=== PATIENT | female | born 1950 | race Caucasian/White ===

== ENCOUNTER 2023-10-23 01:47 | Inpatient (IN) | payer MEDICARE, OTHER ==
[~2023-10-23] VITALS: Ht 157.5 cm; Wt 105.6 kg
[2023-10-23] MEDS ORDERED: ONDANSETRON HCL 4 MG/2 ML VIAL IV ONE (02:00)
[2023-10-23] MEDS ORDERED: MORPHINE SULFATE 4 MG/ML SYR/VIAL IV ONE (02:00)
[2023-10-23 02:30] LABS: Alanine Aminotransferase 23 U/L (7-40); Alkaline Phosphatase 123 U/L (46-116); Anion Gap 6 (5-15); Aspartate Aminotransferase 18 U/L (13-40); BUN/Creatinine Ratio 8.5 (10.0-20.0); Bilirubin, Total 0.4 mg/dL (0.2-1.0); Blood Urea Nitrogen 9 mg/dL (9-23); Calcium 8.4 mg/dL (8.7-10.4); Carbon Dioxide 26 mmol/L (20-30); Chloride 102 mmol/L (98-107); Glucose 243 mg/dL (74-106); Potassium 3.2 mmol/L (3.5-5.1); Sodium 134 mmol/L (136-145); Total Protein 6.7 g/dL (5.7-8.2)
[2023-10-23 02:46] LABS: Basophils # (auto) 0.1 10 ^3/uL (0-0.2); Basophils % (auto) 0.8 % (0.0-2.0); Eosinophils # (auto) 0.4 10 ^3/uL (0-0.8); Hematocrit 41.2 % (36.0-46.0); Hemoglobin 13.9 g/dL (12.2-16.2); Lymphocytes # (auto) 2.6 10 ^3/uL (0.4-5.4); Lymphocytes % (auto) 28.9 % (10.0-50.0); Mean Corpuscular Hemoglobin 30.5 pg (28.0-32.0); Mean Corpuscular Hgb Conc. 33.6 g/dL (32.0-36.0); Mean Corpuscular Volume 90.5 fL (80.0-100.0); Monocytes # (auto) 1.3 10 ^3/uL (0-1.3); Neutrophils # (auto) 4.7 10 ^3/uL (1.6-8.6); Neutrophils % (auto) 52.3 % (37.0-80.0); Red Blood Cells 4.55 10^6/uL (4.0-5.20); Red Cell Distribution Width 13.4 % (11.8-14.3); White Blood Cell 9.1 10^3/uL (4.4-10.8)
[2023-10-23 03:47] VITALS: PULSE 77; RESP 20; O2SAT 94
[2023-10-23] MEDS ORDERED: POTASSIUM CHL 20MEQ/100ML 100 ML IV ONE (04:45)
[2023-10-23] MEDS ORDERED: DEXTROSE (50%) 50ML SYRG IV PRN (07:15)
[2023-10-23] MEDS ORDERED: ALBUTEROL SULF 2.5 MG/0.5ML(0.5%) NEB SOLN NEB PRN (07:15)
[2023-10-23] MEDS ORDERED: ACETAMINOPHEN 325 MG TAB PO PRN (07:15)
[2023-10-23] MEDS ORDERED: MORPHINE SULFATE INJ 2 MG/ml SYRG IV PRN (07:15)
[2023-10-23] MEDS ORDERED: NITROGLYCERIN 0.4 MG SL TAB SL PRN (07:15)
[2023-10-23 07:53] VITALS: PULSE 95; RESP 18; O2SAT 96
[2023-10-23 08:08] LABS: INR 0.98 (0.9-1.15); Partial Thromboplastin Time 23.9 SEC (24.5-34.5); Prothrombin Time 10.3 sec (9.3-11.8)
[2023-10-23 08:15] VITALS: BP 133/73; PULSE 90; RESP 20; TEMP 98.4; O2SAT 95
[2023-10-23 10:08] LABS: COVID19 ANTIGEN SOFIA FIA NEGATIVE (NEGATIVE)
[2023-10-23] MEDS: METOPROLOL SUCCINATE XL 50 MG TAB PO SCH (10:37)
[2023-10-23] MEDS: amLODIPine BESYLATE 5 MG TAB PO SCH (10:38)
[2023-10-23] MEDS: LISINOPRIL 20 MG TAB PO SCH (10:38)
[2023-10-23] MEDS: ONDANSETRON HCL 4 MG/2 ML VIAL IV PRN ×2 (10:39→15:39)
[2023-10-23] MEDS: MORPHINE SULFATE INJ 2 MG/ml SYRG IV PRN ×2 (10:39→19:38)
[2023-10-23] MEDS: FUROSEMIDE 20 MG TAB PO SCH (10:39)
[2023-10-23] MEDS: InsuLIN REG 1unit/0.01ml Soln (100units/ml) SC SCH ×3 (15:40→21:56)
[2023-10-23] MEDS: ACCU-CHEK COMFORT CURVE STRIP VI SCH ×3 (15:40→21:50)
[2023-10-23 19:09] VITALS: BP 138/78; PULSE 2; PULSE 82; RESP 18; TEMP 97.7; O2SAT 94
[2023-10-23 20:00] VITALS: BP 138/78; PULSE 82; PULSE 87; RESP 18; TEMP 97.7; O2SAT 94
[2023-10-23] MEDS ORDERED: CYCLOBENZAPRINE HCL 10 MG TAB ONE (21:38)
[2023-10-23] MEDS ORDERED: GABAPENTIN 300 MG CAP ONE (21:38)
[2023-10-23] MEDS: CYCLOBENZAPRINE HCL 10 MG TAB PO PRN (21:50)
[2023-10-23] MEDS: GABAPENTIN 300 MG CAP PO SCH (21:50)
[2023-10-23 22:00] VITALS: BP 132/64; PULSE 90; RESP 19; TEMP 99.1; O2SAT 94
[2023-10-24] VITALS (10 sets, daily range): BP systolic 106–148; BP diastolic 49–92; PULSE 55–103; RESP 16–20; TEMP 98.8–100.8; O2SAT 91–98
[2023-10-24] MEDS: GABAPENTIN 300 MG CAP PO SCH ×3 (05:28→21:36)
[2023-10-24] MEDS: CYCLOBENZAPRINE HCL 10 MG TAB PO PRN (05:28)
[2023-10-24] MEDS: MORPHINE SULFATE INJ 2 MG/ml SYRG IV PRN ×3 (05:34→16:38)
[2023-10-24] MEDS: ACCU-CHEK COMFORT CURVE STRIP VI SCH ×4 (05:34→23:27)
[2023-10-24] MEDS: InsuLIN REG 1unit/0.01ml Soln (100units/ml) SC SCH ×4 (05:55→23:29)
[2023-10-24 06:13] LABS: Basophils # (auto) 0 10 ^3/uL (0-0.2); Basophils % (auto) 0.4 % (0.0-2.0); Eosinophils # (auto) 0.1 10 ^3/uL (0-0.8); Eosinophils % (auto) 1.1 % (0.0-7.0); Hematocrit 39.4 % (36.0-46.0); Hemoglobin 13.3 g/dL (12.2-16.2); Lymphocytes # (auto) 2.1 10 ^3/uL (0.4-5.4); Lymphocytes % (auto) 23.4 % (10.0-50.0); Mean Corpuscular Hemoglobin 30.7 pg (28.0-32.0); Mean Corpuscular Hgb Conc. 33.8 g/dL (32.0-36.0); Mean Corpuscular Volume 90.7 fL (80.0-100.0); Monocytes # (auto) 1.5 10 ^3/uL (0-1.3); Monocytes % (auto) 17.2 % (0.0-12.0); Neutrophils # (auto) 5.1 10 ^3/uL (1.6-8.6); Neutrophils % (auto) 57.9 % (37.0-80.0); Red Blood Cells 4.34 10^6/uL (4.0-5.20); Red Cell Distribution Width 13.5 % (11.8-14.3); White Blood Cell 8.8 10^3/uL (4.4-10.8)
[2023-10-24 06:25] LABS: Alanine Aminotransferase 19 U/L (7-40); Albumin 3.8 g/dL (3.2-4.8); Alkaline Phosphatase 115 U/L (46-116); Anion Gap 10 (5-15); Aspartate Aminotransferase 25 U/L (13-40); BUN/Creatinine Ratio 9.7 (10.0-20.0); Blood Urea Nitrogen 9 mg/dL (9-23); Calcium 8.6 mg/dL (8.5-10.1); Carbon Dioxide 25 mmol/L (20-30); Chloride 99 mmol/L (98-107); Glucose 219 mg/dL (74-106); Potassium 3.1 mmol/L (3.5-5.1); Sodium 134 mmol/L (136-145)
[2023-10-24 06:26] LABS: Bilirubin, Total 1.2 mg/dL (0.2-1.0); Total Protein 6.5 g/dL (5.7-8.2)
[2023-10-24] MEDS: ONDANSETRON HCL 4 MG/2 ML VIAL IV PRN ×2 (08:12→22:49)
[2023-10-24] MEDS: FUROSEMIDE 20 MG TAB PO SCH (10:00)
[2023-10-24] MEDS: LISINOPRIL 20 MG TAB PO SCH (10:38)
[2023-10-24] MEDS: amLODIPine BESYLATE 5 MG TAB PO SCH (10:39)
[2023-10-24] MEDS: METOPROLOL SUCCINATE XL 50 MG TAB PO SCH (10:39)
[2023-10-24] MEDS ORDERED: POTASSIUM CHLORIDE 40 MEQ, LIDOCAINE 1% (LOCAL ANESTH.) 4 ML in SODIUM CHL 0.9% 250 ML IV ONE (11:00)
[2023-10-24] MEDS ORDERED: D5W/SOD CHL 0.45%/KCL 20MEQ 1,000 ML IV ONE (11:33)
[2023-10-24] MEDS: D5W/SOD CHL 0.45%/KCL 20MEQ 1,000 ML IV SCH ×2 (11:43→21:00)
[2023-10-25] MEDS: MORPHINE SULFATE INJ 2 MG/ml SYRG IV PRN ×2 (01:15→05:27)
[2023-10-25 05:00] VITALS: BP 140/78; PULSE 93; RESP 19; TEMP 98.7; O2SAT 96
[2023-10-25] MEDS: ONDANSETRON HCL 4 MG/2 ML VIAL IV PRN ×3 (05:21→21:16)
[2023-10-25 05:51] LABS: Basophils # (auto) 0 10 ^3/uL (0-0.2); Basophils % (auto) 0.5 % (0.0-2.0); Eosinophils # (auto) 0.1 10 ^3/uL (0-0.8); Eosinophils % (auto) 0.6 % (0.0-7.0); Hematocrit 38.5 % (36.0-46.0); Hemoglobin 13.1 g/dL (12.2-16.2); Lymphocytes # (auto) 2.2 10 ^3/uL (0.4-5.4); Lymphocytes % (auto) 22.9 % (10.0-50.0); Mean Corpuscular Hemoglobin 30.6 pg (28.0-32.0); Mean Corpuscular Hgb Conc. 33.9 g/dL (32.0-36.0); Mean Corpuscular Volume 90.1 fL (80.0-100.0); Monocytes # (auto) 1.3 10 ^3/uL (0-1.3); Monocytes % (auto) 14.3 % (0.0-12.0); Neutrophils # (auto) 5.8 10 ^3/uL (1.6-8.6); Neutrophils % (auto) 61.7 % (37.0-80.0); Nucleated Red Blood Cells % 0.6 %; Red Blood Cells 4.27 10^6/uL (4.0-5.20); Red Cell Distribution Width 13.2 % (11.8-14.3); White Blood Cell 9.4 10^3/uL (4.4-10.8)
[2023-10-25] MEDS: GABAPENTIN 300 MG CAP PO SCH ×3 (06:00→21:16)
[2023-10-25 06:03] LABS: Anion Gap 9 (5-15); Carbon Dioxide 25 mmol/L (20-30); Chloride 99 mmol/L (98-107); Potassium 3.4 mmol/L (3.5-5.1); Sodium 133 mmol/L (136-145)
[2023-10-25 06:04] LABS: Calcium 8.3 mg/dL (8.7-10.4)
[2023-10-25 06:09] LABS: BUN/Creatinine Ratio 9.5 (10.0-20.0); Blood Urea Nitrogen 9 mg/dL (9-23); Glucose 244 mg/dL (74-106)
[2023-10-25] MEDS: InsuLIN REG 1unit/0.01ml Soln (100units/ml) SC SCH ×4 (07:00→22:38)
[2023-10-25] MEDS ORDERED: SUCCINYLCHOLINE CHLORIDE 20 MG/ML 10ML VIAL IV ONE (07:25)
[2023-10-25] MEDS ORDERED: LIDOCAINE 1% HCL (LOCAL ANESTH.) INJ 20ML MDV ONE (07:26)
[2023-10-25] MEDS ORDERED: BUPIVACAINE 0.5% P/F INJ 10 ML VIAL ONE ×2 (07:26→08:30)
[2023-10-25] MEDS ORDERED: fentaNYL CITRATE 100 MCG/2 ML VL ONE ×2 (07:29→08:25)
[2023-10-25] MEDS ORDERED: PROPOFOL 10 MG/ML 20 ML IV ONE (07:29)
[2023-10-25] MEDS ORDERED: ceFAZolin 1GM/50ML 100 ML IV ONE (07:32)
[2023-10-25] MEDS ORDERED: DexAMETHasone SOD PHOS 10MG/1ML VIAL INJ ONE (08:07)
[2023-10-25] MEDS ORDERED: ONDANSETRON HCL 4 MG/2 ML VIAL ONE (08:07)
[2023-10-25] MEDS: ACCU-CHEK COMFORT CURVE STRIP VI SCH ×4 (08:07→22:08)
[2023-10-25] MEDS ORDERED: MEPERIDINE HCL (25 MG/ML) 1ML VIAL ONE (08:19)
[2023-10-25] MEDS ORDERED: SODIUM CHLORIDE LOCK 20 ML ONE (09:04)
[2023-10-25] MEDS ORDERED: LACTATED RINGER'S 1,000 ML IV SCH (09:30)
[2023-10-25 09:39] VITALS: RESP 13; O2SAT 93
[2023-10-25] MEDS ORDERED: ONDANSETRON HCL 4 MG/2 ML VIAL IV PRN (10:00)
[2023-10-25] MEDS ORDERED: METOCLOPRAMIDE HCL 5MG/ml INJ 2ml VIAL IV PRN (10:00)
[2023-10-25] MEDS ORDERED: HYDROmorphone HCL 2 MG/ML VL/or syr IV PRN (10:00)
[2023-10-25] MEDS ORDERED: MEPERIDINE HCL (25 MG/ML) 1ML VIAL IV PRN (10:00)
[2023-10-25] MEDS ORDERED: LIDOCAINE W/ EPINEPHRINE 2% INJ 20ML VIAL ONE ×2 (10:03→13:21)
[2023-10-25] MEDS ORDERED: ceFAZolin 1GM/50ML 50 ML IV ONE ×2 (12:30→21:09)
[2023-10-25] MEDS ORDERED: PANTOPRAZOLE 40 MG TAB PO ONE (12:30)
[2023-10-25] MEDS: PANTOPRAZOLE 40 MG TAB PO SCH (12:36)
[2023-10-25] MEDS: METOPROLOL SUCCINATE XL 50 MG TAB PO SCH (12:36)
[2023-10-25] MEDS: LISINOPRIL 20 MG TAB PO SCH (12:36)
[2023-10-25] MEDS: FUROSEMIDE 20 MG TAB PO SCH (12:37)
[2023-10-25] MEDS: amLODIPine BESYLATE 5 MG TAB PO SCH (12:37)
[2023-10-25] MEDS: ceFAZolin 1GM/50ML 50 ML IV SCH ×2 (12:55→21:15)
[2023-10-25 13:00] VITALS: BP 139/68; PULSE 50; PULSE 96; RESP 14; RESP 16; TEMP 97.6; O2SAT 94
[2023-10-25] MEDS: D5W/SOD CHL 0.45%/KCL 20MEQ 1,000 ML IV SCH ×2 (13:00→17:00)
[2023-10-25 17:00] VITALS: BP 137/52; PULSE 102; RESP 18; TEMP 98.6; O2SAT 100
[2023-10-25 20:00] VITALS: PULSE 100
[2023-10-25 22:00] VITALS: BP 129/68; PULSE 101; RESP 20; TEMP 98.9; O2SAT 96
[2023-10-25] MEDS: HYDROcodone-ACET 5/325MG TAB PO PRN (22:14)
[2023-10-26] VITALS (7 sets, daily range): BP systolic 127–136; BP diastolic 54–85; PULSE 93–104; RESP 18–20; TEMP 98.8–99; O2SAT 90–96
[2023-10-26] MEDS: ceFAZolin 1GM/50ML 50 ML IV SCH (05:46)
[2023-10-26] MEDS: GABAPENTIN 300 MG CAP PO SCH ×3 (05:46→21:24)
[2023-10-26] MEDS: D5W/SOD CHL 0.45%/KCL 20MEQ 1,000 ML IV SCH ×3 (05:55→23:00)
[2023-10-26] MEDS: ONDANSETRON HCL 4 MG/2 ML VIAL IV PRN (05:55)
[2023-10-26] MEDS: ACCU-CHEK COMFORT CURVE STRIP VI SCH ×4 (06:02→21:26)
[2023-10-26] MEDS: InsuLIN REG 1unit/0.01ml Soln (100units/ml) SC SCH ×4 (06:06→21:28)
[2023-10-26] MEDS ORDERED: PANTOPRAZOLE 40 MG/10 ML VIAL INJ IV SCH (10:00)
[2023-10-26] MEDS: FUROSEMIDE 20 MG TAB PO SCH (10:15)
[2023-10-26] MEDS: METOPROLOL SUCCINATE XL 50 MG TAB PO SCH (10:15)
[2023-10-26] MEDS: HYDROcodone-ACET 5/325MG TAB PO PRN (10:16)
[2023-10-26] MEDS: amLODIPine BESYLATE 5 MG TAB PO SCH (10:16)
[2023-10-26] MEDS: LISINOPRIL 20 MG TAB PO SCH (10:16)
[2023-10-26] MEDS: PANTOPRAZOLE 40 MG TAB PO SCH (10:16)
[2023-10-26] MEDS: MORPHINE SULFATE INJ 2 MG/ml SYRG IV PRN ×2 (19:05→23:23)
[2023-10-27] VITALS (8 sets, daily range): BP systolic 111–144; BP diastolic 56–69; PULSE 70–96; RESP 18–20; TEMP 98.2–98.6; O2SAT 94–97
[2023-10-27] MEDS: HYDROcodone-ACET 5/325MG TAB PO PRN (02:19)
[2023-10-27] MEDS: GABAPENTIN 300 MG CAP PO SCH ×3 (05:03→22:15)
[2023-10-27] MEDS: CYCLOBENZAPRINE HCL 10 MG TAB PO PRN (05:03)
[2023-10-27] MEDS: ACCU-CHEK COMFORT CURVE STRIP VI SCH ×4 (06:15→22:18)
[2023-10-27] MEDS: InsuLIN REG 1unit/0.01ml Soln (100units/ml) SC SCH ×4 (06:32→22:18)
[2023-10-27 09:04] LABS: Hepatitis B Surface Antigen Negative (Negative)
[2023-10-27 09:19] LABS: Basophils # (auto) 0 10 ^3/uL (0-0.2); Basophils % (auto) 0.3 % (0.0-2.0); Eosinophils # (auto) 0.1 10 ^3/uL (0-0.8); Eosinophils % (auto) 1.2 % (0.0-7.0); Hematocrit 33.8 % (36.0-46.0); Hemoglobin 11.3 g/dL (12.2-16.2); Lymphocytes # (auto) 2.9 10 ^3/uL (0.4-5.4); Lymphocytes % (auto) 31.1 % (10.0-50.0); Mean Corpuscular Hemoglobin 30.6 pg (28.0-32.0); Mean Corpuscular Hgb Conc. 33.3 g/dL (32.0-36.0); Mean Corpuscular Volume 91.7 fL (80.0-100.0); Monocytes # (auto) 1.4 10 ^3/uL (0-1.3); Monocytes % (auto) 15.7 % (0.0-12.0); Neutrophils # (auto) 4.8 10 ^3/uL (1.6-8.6); Neutrophils % (auto) 51.7 % (37.0-80.0); Nucleated Red Blood Cells % 0.1 %; Red Blood Cells 3.68 10^6/uL (4.0-5.20); Red Cell Distribution Width 13.5 % (11.8-14.3); White Blood Cell 9.2 10^3/uL (4.4-10.8)
[2023-10-27 09:26] LABS: Hepatitis C Antibody Negative (Negative)
[2023-10-27 09:37] LABS: Anion Gap 6 (5-15); Calcium 8.2 mg/dL (8.5-10.1); Carbon Dioxide 28 mmol/L (20-30); Chloride 102 mmol/L (98-107); Potassium 3.4 mmol/L (3.5-5.1); Sodium 136 mmol/L (136-145)
[2023-10-27 09:42] LABS: Glucose 244 mg/dL (74-106)
[2023-10-27 09:43] LABS: BUN/Creatinine Ratio 15.2 (10.0-20.0); Blood Urea Nitrogen 14 mg/dL (9-23)
[2023-10-27] MEDS: D5W/SOD CHL 0.45%/KCL 20MEQ 1,000 ML IV SCH ×2 (09:53→22:13)
[2023-10-27] MEDS: FUROSEMIDE 20 MG TAB PO SCH (09:54)
[2023-10-27] MEDS: PANTOPRAZOLE 40 MG TAB PO SCH (09:54)
[2023-10-27] MEDS: amLODIPine BESYLATE 5 MG TAB PO SCH (09:55)
[2023-10-27] MEDS: METOPROLOL SUCCINATE XL 50 MG TAB PO SCH (09:55)
[2023-10-27] MEDS: LISINOPRIL 20 MG TAB PO SCH (09:56)
[2023-10-27] MEDS: MORPHINE SULFATE INJ 2 MG/ml SYRG IV PRN ×3 (10:11→22:09)
[2023-10-27] MEDS ORDERED: POTASSIUM EFFERVESENT TAB 25 MEQ PO ONE (11:30)
[2023-10-27] MEDS: DOCUSATE SOD 100 MG CAP PO SCH (22:15)
[2023-10-28] MEDS: D5W/SOD CHL 0.45%/KCL 20MEQ 1,000 ML IV SCH ×2 (05:00→09:17)
[2023-10-28] MEDS: ACCU-CHEK COMFORT CURVE STRIP VI SCH ×4 (06:10→21:21)
[2023-10-28] MEDS: GABAPENTIN 300 MG CAP PO SCH ×3 (06:14→21:21)
[2023-10-28] MEDS: InsuLIN REG 1unit/0.01ml Soln (100units/ml) SC SCH ×4 (06:17→21:32)
[2023-10-28] MEDS: HYDROcodone-ACET 5/325MG TAB PO PRN (06:22)
[2023-10-28 06:28] VITALS: BP 147/68; PULSE 88; RESP 18; TEMP 98.3; O2SAT 95
[2023-10-28] MEDS: DOCUSATE SOD 100 MG CAP PO SCH ×2 (09:18→21:21)
[2023-10-28] MEDS: FUROSEMIDE 20 MG TAB PO SCH (09:18)
[2023-10-28] MEDS: LISINOPRIL 20 MG TAB PO SCH (09:19)
[2023-10-28] MEDS: amLODIPine BESYLATE 5 MG TAB PO SCH (09:19)
[2023-10-28] MEDS: PANTOPRAZOLE 40 MG TAB PO SCH (09:19)
[2023-10-28] MEDS: METOPROLOL SUCCINATE XL 50 MG TAB PO SCH (09:20)
[2023-10-28 09:27] VITALS: BP 129/98; PULSE 87; RESP 17; TEMP 98.7; O2SAT 96
[2023-10-28] MEDS: MORPHINE SULFATE INJ 2 MG/ml SYRG IV PRN ×2 (11:40→21:22)
[2023-10-28 12:53] VITALS: BP 146/75; PULSE 87; RESP 17; TEMP 98.7; O2SAT 97
[2023-10-28] MEDS ORDERED: POLYETHYLENE GLYCOL 17 GM PWDR PO ONE (14:30)
[2023-10-28 16:45] VITALS: BP 119/62; PULSE 84; RESP 17; TEMP 98.4; O2SAT 95
[2023-10-28 20:00] VITALS: RESP 18
[2023-10-28 22:00] VITALS: BP 159/65; PULSE 85; RESP 18; TEMP 98; O2SAT 97
[2023-10-29] VITALS (7 sets, daily range): BP systolic 139–166; BP diastolic 60–78; PULSE 72–87; RESP 16–20; TEMP 98–98.9; O2SAT 95–97
[2023-10-29] MEDS: MORPHINE SULFATE INJ 2 MG/ml SYRG IV PRN ×3 (03:56→17:57)
[2023-10-29 06:05] LABS: Basophils # (auto) 0 10 ^3/uL (0-0.2); Basophils % (auto) 0.4 % (0.0-2.0); Eosinophils # (auto) 0.4 10 ^3/uL (0-0.8); Hemoglobin 11.9 g/dL (12.2-16.2); Lymphocytes # (auto) 2.7 10 ^3/uL (0.4-5.4); Lymphocytes % (auto) 30.6 % (10.0-50.0); Mean Corpuscular Hemoglobin 31.2 pg (28.0-32.0); Mean Corpuscular Hgb Conc. 34.1 g/dL (32.0-36.0); Mean Corpuscular Volume 91.6 fL (80.0-100.0); Monocytes # (auto) 1.3 10 ^3/uL (0-1.3); Neutrophils # (auto) 4.3 10 ^3/uL (1.6-8.6); Red Blood Cells 3.82 10^6/uL (4.0-5.20); Red Cell Distribution Width 13.1 % (11.8-14.3); White Blood Cell 8.7 10^3/uL (4.4-10.8)
[2023-10-29 06:21] LABS: Anion Gap 5 (5-15); Carbon Dioxide 28 mmol/L (20-30); Chloride 99 mmol/L (98-107); Potassium 4.1 mmol/L (3.5-5.1); Sodium 132 mmol/L (136-145)
[2023-10-29] MEDS: GABAPENTIN 300 MG CAP PO SCH ×3 (06:21→21:10)
[2023-10-29 06:22] LABS: Calcium 8.4 mg/dL (8.7-10.4)
[2023-10-29] MEDS: ACCU-CHEK COMFORT CURVE STRIP VI SCH ×4 (06:22→21:02)
[2023-10-29] MEDS: POLYETHYLENE GLYCOL 17 GM PWDR PO PRN (06:22)
[2023-10-29 06:27] LABS: BUN/Creatinine Ratio 8.3 (10.0-20.0); Blood Urea Nitrogen 7 mg/dL (9-23); Glucose 206 mg/dL (74-106)
[2023-10-29] MEDS: InsuLIN REG 1unit/0.01ml Soln (100units/ml) SC SCH ×4 (06:34→21:09)
[2023-10-29] MEDS: HYDROcodone-ACET 5/325MG TAB PO PRN ×2 (06:45→20:15)
[2023-10-29] MEDS: PANTOPRAZOLE 40 MG TAB PO SCH (11:49)
[2023-10-29] MEDS: DOCUSATE SOD 100 MG CAP PO SCH ×2 (11:49→21:10)
[2023-10-29] MEDS: LISINOPRIL 20 MG TAB PO SCH (11:50)
[2023-10-29] MEDS: FUROSEMIDE 20 MG TAB PO SCH (11:50)
[2023-10-29] MEDS: amLODIPine BESYLATE 5 MG TAB PO SCH (11:51)
[2023-10-29] MEDS: METOPROLOL SUCCINATE XL 50 MG TAB PO SCH (12:07)
[2023-10-29] MEDS ORDERED: DEXTROSE (50%) 50ML SYRG IV PRN (16:00)
[2023-10-30] VITALS (7 sets, daily range): BP systolic 124–140; BP diastolic 65–95; PULSE 75–88; RESP 14–20; TEMP 98.1–98.8; O2SAT 94–98
[2023-10-30] MEDS: MORPHINE SULFATE INJ 2 MG/ml SYRG IV PRN ×5 (00:15→22:55)
[2023-10-30] MEDS: GABAPENTIN 300 MG CAP PO SCH ×3 (05:50→21:28)
[2023-10-30] MEDS: InsuLIN REG 1unit/0.01ml Soln (100units/ml) SC SCH ×4 (06:16→21:25)
[2023-10-30] MEDS: ACCU-CHEK COMFORT CURVE STRIP VI SCH ×4 (06:16→22:00)
[2023-10-30] MEDS: PANTOPRAZOLE 40 MG TAB PO SCH (10:07)
[2023-10-30] MEDS: METOPROLOL SUCCINATE XL 50 MG TAB PO SCH (10:07)
[2023-10-30] MEDS: amLODIPine BESYLATE 5 MG TAB PO SCH (10:08)
[2023-10-30] MEDS: LISINOPRIL 20 MG TAB PO SCH (10:08)
[2023-10-30] MEDS: DOCUSATE SOD 100 MG CAP PO SCH ×2 (10:08→21:28)
[2023-10-30] MEDS: FUROSEMIDE 20 MG TAB PO SCH (10:08)
[2023-10-30] MEDS: CYCLOBENZAPRINE HCL 10 MG TAB PO PRN (10:09)
[2023-10-30] MEDS: POLYETHYLENE GLYCOL 17 GM PWDR PO PRN (10:15)
[2023-10-30] MEDS: HYDROcodone-ACET 5/325MG TAB PO PRN ×2 (11:30→20:16)
[2023-10-30] MEDS ORDERED: INSULIN LANTUS (GLARGINE) 1 /0.01ml (100units/ml) SC SCH (22:00)
[2023-10-31] MEDS: HYDROcodone-ACET 5/325MG TAB PO PRN ×3 (03:57→16:40)
[2023-10-31] MEDS: ACCU-CHEK COMFORT CURVE STRIP VI SCH ×3 (05:57→18:01)
[2023-10-31] MEDS: InsuLIN REG 1unit/0.01ml Soln (100units/ml) SC SCH ×3 (05:57→18:00)
[2023-10-31] MEDS: GABAPENTIN 300 MG CAP PO SCH ×2 (06:06→14:09)
[2023-10-31] MEDS: MORPHINE SULFATE INJ 2 MG/ml SYRG IV PRN ×3 (06:10→18:02)
[2023-10-31 08:00] VITALS: PULSE 82; RESP 17; O2SAT 98
[2023-10-31 09:05] VITALS: BP 149/62; PULSE 82; RESP 17; TEMP 98.2; O2SAT 98
[2023-10-31] MEDS: POLYETHYLENE GLYCOL 17 GM PWDR PO PRN (09:45)
[2023-10-31] MEDS: amLODIPine BESYLATE 5 MG TAB PO SCH (09:46)
[2023-10-31] MEDS: METOPROLOL SUCCINATE XL 50 MG TAB PO SCH (09:46)
[2023-10-31] MEDS: DOCUSATE SOD 100 MG CAP PO SCH (09:47)
[2023-10-31] MEDS: FUROSEMIDE 20 MG TAB PO SCH (09:47)
[2023-10-31] MEDS: PANTOPRAZOLE 40 MG TAB PO SCH (09:48)
[2023-10-31] MEDS: LISINOPRIL 20 MG TAB PO SCH (09:48)
[2023-10-31 13:06] VITALS: BP 137/64; PULSE 84; RESP 21; TEMP 98; O2SAT 95
[2023-10-31 16:24] VITALS: BP 134/76; PULSE 82; RESP 21; TEMP 98.7; O2SAT 96
[2023-10-31 18:32] VITALS: BP 130/88; PULSE 80; RESP 20
[2023-10-31] MEDS ORDERED: INSULIN LANTUS (GLARGINE) 1 /0.01ml (100units/ml) SC SCH (22:00)
[2023-11-01] MEDS ORDERED: PANT1INJ3 PO (22:32)
[2023-11-01] MEDS ORDERED: METO-281 PO (22:32)
== END 2023-10-31 19:50 | DRG 481 ==
LOC: ER 01:47 → EDBD 01:47 → TELE 07:15 → TELE-EAST 18:56 → EAST 10-27 18:38
PROVIDERS: ADMIT Nurse Practitioner; ATTEND Nurse Practitioner Acute Care
PROC: 0QS734Z Reposition Left Upper Femur with Internal Fixation Device, Percutaneous Approach (ICD-10-PCS; principal; 2023-10-25 07:39)
DX: S72.142A Displaced intertrochanteric fracture of left femur, initial encounter for closed fracture (principal); S52.502A Unspecified fracture of the lower end of left radius, initial encounter for closed fracture; Z68.41 Body mass index [BMI] 40.0-44.9, adult; E87.6 Hypokalemia; E78.5 Hyperlipidemia, unspecified; E66.01 Morbid (severe) obesity due to excess calories; G89.4 Chronic pain syndrome; E11.22 Type 2 diabetes mellitus with diabetic chronic kidney disease; N18.31 Chronic kidney disease, stage 3a; G62.9 Polyneuropathy, unspecified; Z20.822 Contact with and (suspected) exposure to COVID-19; W01.0XXA Fall on same level from slipping, tripping and stumbling without subsequent striking against object, initial encounter; Z96.652 Presence of left artificial knee joint; I12.9 Hypertensive chronic kidney disease with stage 1 through stage 4 chronic kidney disease, or unspecified chronic kidney disease; Z90.710 Acquired absence of both cervix and uterus; Z88.2 Allergy status to sulfonamides; Z82.49 Family history of ischemic heart disease and other diseases of the circulatory system; Z91.81 History of falling; Y93.89 Activity, other specified; Y92.098 Other place in other non-institutional residence as the place of occurrence of the external cause; Y99.8 Other external cause status
CPT/HCPCS: 36415; 70450; 71250; 72125; 72170; 73100; 73502; 73700; 74176; 76000; 80048; 80053; 82962; 85025; 85610; 85730; 86803; 86850; 86900; 86901; 87340; 87426; 93306; 96365; 96375; 96376; 97110; 97116; 97163; 97530; A4565; G0378; J0330; J1100; J1815; J2001; J2405; J2704; J3480; J3490

== ENCOUNTER 2023-11-01 17:18 | Inpatient (IN) | payer MEDICARE ==
[~2023-11-01] VITALS: Ht 157.5 cm; Wt 104.2 kg
[2023-11-01] MEDS ORDERED: ONDANSETRON HCL 4 MG/2 ML VIAL IV ONE ×2 (19:15→21:00)
[2023-11-01 19:30] VITALS: O2SAT 99
[2023-11-01 19:38] LABS: Mean Corpuscular Volume 90.1 fL (80.0-100.0); White Blood Cell 6.8 10^3/uL (4.4-10.8)
[2023-11-01 19:40] LABS: Hematocrit 38.2 % (36.0-46.0); Mean Corpuscular Hemoglobin 30.6 pg (28.0-32.0); Red Blood Cells 4.23 10^6/uL (4.0-5.20); Red Cell Distribution Width 13.7 % (11.8-14.3)
[2023-11-01 20:04] LABS: Alanine Aminotransferase 18 U/L (7-40); Albumin 4.1 g/dL (3.2-4.8); Alkaline Phosphatase 140 U/L (46-116); Anion Gap 10 (5-15); Aspartate Aminotransferase 19 U/L (13-40); BUN/Creatinine Ratio 7.3 (10.0-20.0); Blood Urea Nitrogen 8 mg/dL (9-23); Calcium 8.8 mg/dL (8.7-10.4); Carbon Dioxide 24 mmol/L (20-30); Chloride 92 mmol/L (98-107); Glucose 268 mg/dL (74-106); Lipase 51 U/L (12-53); Potassium 3.8 mmol/L (3.5-5.1)
[2023-11-01 20:05] LABS: Total Protein 6.8 g/dL (5.7-8.2)
[2023-11-01 20:10] LABS: Basophils % (manual) 0 (0.0-2.0); Blast Cells 0; Eosinophils % (manual) 0 (0-7); Promyelocytes % 0; Reactive Lymphocytes 0
[2023-11-01 20:16] LABS: Sodium 126 mmol/L (136-145)
[2023-11-01 20:35] LABS: Band Neutrophils % (manual) 18; Lymphocytes % (manual) 7 (10.0-50.0); Metamyelocytes % 4; Monocytes % (manual) 15 (0-12); Myelocytes % 5; Platelet Estimate Increased
[2023-11-01] MEDS ORDERED: MORPHINE SULFATE INJ 2 MG/ml SYRG IV ONE (21:00)
[2023-11-01] MEDS ORDERED: SODIUM CHLORIDE 0.9% 500 ML IV ONE (21:45)
[2023-11-01] MEDS ORDERED: PANT1INJ3 PO (22:32)
[2023-11-01] MEDS ORDERED: METO-281 PO (22:32)
[2023-11-02] MEDS ORDERED: LACTATED RINGER'S 1,000 ML IV ONE (03:00)
[2023-11-02] MEDS ORDERED: MORPHINE SULFATE 4 MG/ML SYR/VIAL IV ONE (03:00)
[2023-11-02] MEDS ORDERED: ONDANSETRON HCL 4 MG/2 ML VIAL IV ONE ×2 (03:00)
[2023-11-02 04:00] VITALS: O2SAT 99
[2023-11-02] MEDS ORDERED: diphenhdrAMINE HCL 50 MG/1 ML VL IV ONE (06:00)
[2023-11-02] MEDS ORDERED: METOCLOPRAMIDE HCL 5MG/ml INJ 2ml VIAL IV ONE ×2 (06:00→07:15)
[2023-11-02] MEDS ORDERED: DOCUSATE SOD 100 MG CAP PO PRN (07:15)
[2023-11-02] MEDS ORDERED: diphenhdrAMINE HCL 50 MG/1 ML VL IM ONE (07:15)
[2023-11-02] MEDS ORDERED: ONDANSETRON HCL 4 MG/2 ML VIAL IV PRN (07:15)
[2023-11-02] MEDS ORDERED: DEXTROSE (50%) 50ML SYRG IV PRN (07:15)
[2023-11-02] MEDS ORDERED: MORPHINE SULFATE INJ 2 MG/ml SYRG IM ONE (07:15)
[2023-11-02] MEDS ORDERED: ONDANSETRON HCL 4 MG/2 ML VIAL IM ONE (07:15)
[2023-11-02 08:10] VITALS: PULSE 93; RESP 18; O2SAT 97
[2023-11-02] MEDS: ENOXAPARIN SOD 40 MG/0.4 ML SYRINGE SC SCH (10:23)
[2023-11-02] MEDS: INSULIN LANTUS (GLARGINE) 1 /0.01ml (100units/ml) SC SCH (10:24)
[2023-11-02 10:50] VITALS: PULSE 90; RESP 19; O2SAT 95
[2023-11-02] MEDS: SODIUM CHLORIDE 0.9% 1,000 ML IV SCH (12:20)
[2023-11-02] MEDS: MORPHINE SULFATE INJ 2 MG/ml SYRG IV PRN ×3 (12:21→22:22)
[2023-11-02] MEDS: ACCU-CHEK COMFORT CURVE STRIP VI SCH ×3 (12:22→23:17)
[2023-11-02] MEDS: InsuLIN REG 1unit/0.01ml Soln (100units/ml) SC SCH ×3 (13:09→23:17)
[2023-11-02 17:00] VITALS: BP 123/67; PULSE 92; RESP 20; TEMP 98.7; O2SAT 97
[2023-11-02 22:00] VITALS: BP 127/65; PULSE 95; RESP 18; TEMP 98; O2SAT 95
[2023-11-03] MEDS: SODIUM CHLORIDE 0.9% 1,000 ML IV SCH ×2 (01:06→16:26)
[2023-11-03] MEDS: MORPHINE SULFATE INJ 2 MG/ml SYRG IV PRN ×4 (03:09→21:41)
[2023-11-03 05:00] VITALS: BP 129/63; PULSE 93; RESP 18; TEMP 98.1; O2SAT 92
[2023-11-03] MEDS: InsuLIN REG 1unit/0.01ml Soln (100units/ml) SC SCH ×3 (05:56→18:03)
[2023-11-03] MEDS: ACCU-CHEK COMFORT CURVE STRIP VI SCH ×4 (05:59→23:59)
[2023-11-03 06:07] LABS: Hemoglobin 12.5 g/dL (12.2-16.2); Mean Corpuscular Hemoglobin 31.3 pg (28.0-32.0); Mean Corpuscular Hgb Conc. 33.8 g/dL (32.0-36.0); Mean Corpuscular Volume 92.7 fL (80.0-100.0); Red Blood Cells 3.99 10^6/uL (4.0-5.20); Red Cell Distribution Width 13.5 % (11.8-14.3); White Blood Cell 5.4 10^3/uL (4.4-10.8)
[2023-11-03 06:10] LABS: Band Neutrophils % (manual) 0; Basophils % (manual) 0 (0.0-2.0); Blast Cells 0; Eosinophils % (manual) 0 (0-7); Metamyelocytes % 0; Myelocytes % 0; Promyelocytes % 0; Reactive Lymphocytes 0
[2023-11-03 06:15] LABS: Alanine Aminotransferase 15 U/L (7-40); Albumin 3.6 g/dL (3.2-4.8); Alkaline Phosphatase 123 U/L (46-116); Anion Gap 7 (5-15); Aspartate Aminotransferase 28 U/L (13-40); BUN/Creatinine Ratio 8.9 (10.0-20.0); Bilirubin, Total 0.5 mg/dL (0.2-1.0); Blood Urea Nitrogen 9 mg/dL (9-23); Calcium 8.4 mg/dL (8.5-10.1); Carbon Dioxide 25 mmol/L (20-30); Chloride 100 mmol/L (98-107); Glucose 149 mg/dL (74-106); Potassium 3.9 mmol/L (3.5-5.1)
[2023-11-03 06:16] LABS: Sodium 132 mmol/L (136-145)
[2023-11-03 08:28] LABS: Lymphocytes % (manual) 20 (10.0-50.0); Monocytes % (manual) 20 (0-12); Platelet Estimate Increased
[2023-11-03 08:57] VITALS: BP 126/66; PULSE 97; RESP 18; TEMP 99.1; O2SAT 93
[2023-11-03] MEDS: ENOXAPARIN SOD 40 MG/0.4 ML SYRINGE SC SCH (09:42)
[2023-11-03] MEDS: INSULIN LANTUS (GLARGINE) 1 /0.01ml (100units/ml) SC SCH (10:15)
[2023-11-03 13:00] VITALS: BP 171/74; PULSE 95; RESP 17; TEMP 98; O2SAT 93
[2023-11-03] MEDS ORDERED: GASTROGRAFIN 120 ML SOL ONE (14:14)
[2023-11-03] MEDS: hydrALAZINE HCL 20 MG/ML VL IV PRN (16:22)
[2023-11-03 17:00] VITALS: BP 171/72; PULSE 99; RESP 16; TEMP 98.2; O2SAT 95
[2023-11-03 20:00] VITALS: PULSE 91; RESP 20; O2SAT 96
[2023-11-03 22:00] VITALS: BP 141/73; PULSE 103; RESP 18; TEMP 98.2; O2SAT 96
[2023-11-04] MEDS: InsuLIN REG 1unit/0.01ml Soln (100units/ml) SC SCH ×4 (00:01→18:57)
[2023-11-04 05:00] VITALS: BP 150/70; PULSE 90; RESP 18; TEMP 98.3; O2SAT 95
[2023-11-04] MEDS: MORPHINE SULFATE INJ 2 MG/ml SYRG IV PRN ×3 (05:25→20:34)
[2023-11-04] MEDS: ACCU-CHEK COMFORT CURVE STRIP VI SCH ×3 (06:00→17:58)
[2023-11-04 07:41] LABS: Urine Bacteria FEW /hpf (None Seen); Urine Blood 1+ /uL (Negative); Urine Clarity HAZY (Clear); Urine Color Yellow (Yellow); Urine Hyaline Cast FEW /lpf (0 - 2); Urine Mucus FEW (None Seen); Urine Protein, UAD 1+ (Negative); Urine WBC 11 /hpf (0 - 5)
[2023-11-04 08:30] VITALS: BP 158/64; PULSE 83; RESP 22; TEMP 98.1; O2SAT 93
[2023-11-04 08:37] VITALS: BP 158/64; PULSE 83; RESP 22; TEMP 98.1; O2SAT 93
[2023-11-04] MEDS: SODIUM CHLORIDE 0.9% 1,000 ML IV SCH (09:15)
[2023-11-04] MEDS: ENOXAPARIN SOD 40 MG/0.4 ML SYRINGE SC SCH (09:29)
[2023-11-04] MEDS: INSULIN LANTUS (GLARGINE) 1 /0.01ml (100units/ml) SC SCH (09:31)
[2023-11-04] MEDS: hydrALAZINE HCL 20 MG/ML VL IV PRN ×2 (13:40→22:23)
[2023-11-04 17:00] VITALS: BP 140/76; PULSE 107; RESP 21; TEMP 97.9; O2SAT 100
[2023-11-04 20:00] VITALS: PULSE 98; RESP 20; O2SAT 94
[2023-11-04 22:00] VITALS: BP 161/65; PULSE 108; RESP 20; TEMP 98.4; O2SAT 92
[2023-11-05] MEDS: ACCU-CHEK COMFORT CURVE STRIP VI SCH ×4 (00:01→17:12)
[2023-11-05] MEDS: InsuLIN REG 1unit/0.01ml Soln (100units/ml) SC SCH ×4 (00:03→17:15)
[2023-11-05] MEDS: SODIUM CHLORIDE 0.9% 1,000 ML IV SCH ×2 (02:55→17:15)
[2023-11-05] MEDS: MORPHINE SULFATE INJ 2 MG/ml SYRG IV PRN ×3 (04:40→22:31)
[2023-11-05 05:00] VITALS: BP 147/72; PULSE 86; RESP 94; TEMP 97.3; O2SAT 94
[2023-11-05 07:58] VITALS: BP 159/71; PULSE 94; RESP 17; TEMP 98.4; O2SAT 96
[2023-11-05] MEDS: ENOXAPARIN SOD 40 MG/0.4 ML SYRINGE SC SCH (09:13)
[2023-11-05] MEDS: INSULIN LANTUS (GLARGINE) 1 /0.01ml (100units/ml) SC SCH (09:14)
[2023-11-05 12:00] VITALS: BP 142/68; PULSE 101; RESP 16; TEMP 98.9; O2SAT 98
[2023-11-05 14:36] LABS: COVID19 ANTIGEN SOFIA FIA POSITIVE (NEGATIVE)
[2023-11-05 16:00] VITALS: BP 166/65; PULSE 87; RESP 17; TEMP 99.1; O2SAT 99
[2023-11-05] MEDS: hydrALAZINE HCL 20 MG/ML VL IV PRN (17:13)
[2023-11-05 18:27] VITALS: BP 150/67
[2023-11-05 22:00] VITALS: BP 170/80; PULSE 96; RESP 20; TEMP 98.9; O2SAT 99
[2023-11-06] MEDS: ACCU-CHEK COMFORT CURVE STRIP VI SCH ×4 (00:38→16:57)
[2023-11-06] MEDS: InsuLIN REG 1unit/0.01ml Soln (100units/ml) SC SCH ×4 (00:40→16:57)
[2023-11-06] MEDS: MORPHINE SULFATE INJ 2 MG/ml SYRG IV PRN ×3 (04:24→17:41)
[2023-11-06 05:00] VITALS: BP 156/72; PULSE 101; RESP 21; TEMP 98; O2SAT 92
[2023-11-06] MEDS: hydrALAZINE HCL 20 MG/ML VL IV PRN (06:35)
[2023-11-06 09:00] VITALS: BP 144/66; PULSE 103; RESP 22; TEMP 98.3; O2SAT 96
[2023-11-06] MEDS: ENOXAPARIN SOD 40 MG/0.4 ML SYRINGE SC SCH (10:06)
[2023-11-06] MEDS: INSULIN LANTUS (GLARGINE) 1 /0.01ml (100units/ml) SC SCH (10:15)
[2023-11-06] MEDS ORDERED: ZINC SULFATE 220mg CAP or TAB PO ONE (11:00)
[2023-11-06] MEDS: SODIUM CHLORIDE 0.9% 1,000 ML IV SCH (11:15)
[2023-11-06 13:00] VITALS: BP 156/52; PULSE 94; RESP 22; TEMP 98.2; O2SAT 97
[2023-11-06 16:10] VITALS: BP 158/69; PULSE 89; RESP 20; TEMP 98.5; O2SAT 96
[2023-11-06 16:26] VITALS: BP 156/72; PULSE 94; RESP 22; TEMP 98.2; O2SAT 97
[2023-11-06 17:41] VITALS: BP 158/69; PULSE 89; RESP 20
[2023-11-06] MEDS ORDERED: ASCORBIC ACID 500 MG TAB PO SCH (22:00)
[2023-11-07] MEDS ORDERED: CHOLECALCIFEROL (VITD3) 2,000 UNIT CAP/TAB PO SCH (10:00)
[2023-11-07] MEDS ORDERED: ZINC SULFATE 220mg CAP or TAB PO SCH (10:00)
== END 2023-11-06 18:20 | DRG 389 ==
LOC: EDBD 17:18 → ER 17:18 → OVERFLOW 11-02 07:17 → WEST WING 11-02 10:48
PROVIDERS: ADMIT Internal Medicine; ATTEND Internal Medicine
PROC: 0D9670Z Drainage of Stomach with Drainage Device, Via Natural or Artificial Opening (ICD-10-PCS; 2023-11-02)
PROC: 05HB33Z Insertion of Infusion Device into Right Basilic Vein, Percutaneous Approach (ICD-10-PCS; principal; 2023-11-04)
PROC: B54MZZA Ultrasonography of Right Upper Extremity Veins, Guidance (ICD-10-PCS; 2023-11-04)
DX: K56.609 Unspecified intestinal obstruction, unspecified as to partial versus complete obstruction (principal); E87.1 Hypo-osmolality and hyponatremia; N17.9 Acute kidney failure, unspecified; N39.0 Urinary tract infection, site not specified; E11.65 Type 2 diabetes mellitus with hyperglycemia; E11.36 Type 2 diabetes mellitus with diabetic cataract; I10 Essential (primary) hypertension; Z96.652 Presence of left artificial knee joint; E78.00 Pure hypercholesterolemia, unspecified; R29.6 Repeated falls; E66.9 Obesity, unspecified; Z68.35 Body mass index [BMI] 35.0-35.9, adult; Z82.49 Family history of ischemic heart disease and other diseases of the circulatory system; Z86.16 Personal history of COVID-19; Z88.2 Allergy status to sulfonamides; Z90.710 Acquired absence of both cervix and uterus
CPT/HCPCS: 36415; 71045; 74176; 74250; 80053; 81001; 82962; 83036; 83690; 83935; 84300; 85007; 85027; 87081; 87426; 93005; 96361; 96374; 96375; 97110; 97116; 97163; 97530; G0378; J1815; J2405